=== PATIENT | female | born 1960 | race Hispanic/Latino ===

== ENCOUNTER 2016-10-24 07:05 | Day surgery (SDC) | payer OTHER ==
[~2016-10-24 07:05] MED LIST: ADVAIR DISKU IN; ATORVASTATIN CA40 MG PO; BYDUREON2 MG IJ; CLONIDINE0.1 MG PO; LEVOTHYROXIN25 MC1 PO; METFORMIN500 MG PO; OMEPRAZOLE20 M2 PO; PROAIR HFA IN
[2016-10-24 09:26] VITALS: BP 132/73
== END 2016-10-24 09:45 | disposition home or self-care (01) | DRG 392 ==
LOC: ENDO 07:05 → ORM 11:00
PROVIDERS: ATTEND Internal Medicine Gastroenterology
PROC: 0DB48ZX Excision of Esophagogastric Junction, Via Natural or Artificial Opening Endoscopic, Diagnostic (ICD-10-PCS; principal; 2016-10-24)
PROC: 0DB68ZX Excision of Stomach, Via Natural or Artificial Opening Endoscopic, Diagnostic (ICD-10-PCS; 2016-10-24)
DX: K21.9 Gastro-esophageal reflux disease without esophagitis (principal); I10 Essential (primary) hypertension; K59.00 Constipation, unspecified; K64.8 Other hemorrhoids; K29.70 Gastritis, unspecified, without bleeding; K31.7 Polyp of stomach and duodenum; E11.9 Type 2 diabetes mellitus without complications; J45.909 Unspecified asthma, uncomplicated; E78.00 Pure hypercholesterolemia, unspecified; K44.9 Diaphragmatic hernia without obstruction or gangrene; Z79.899 Other long term (current) drug therapy; Z86.010 Personal history of colon polyps